=== PATIENT | female | born 2000 | race Native Hawaiian/Other Pacific Islander ===

== ENCOUNTER 2024-01-21 09:30 | Day surgery (SDC) | payer OTHER, SELFPAY ==
[2024-01-08 13:53] VITALS: BMI 32.5
[2024-01-21] VITALS (7 sets, daily range): BP systolic 98–109; BP diastolic 53–67; PULSE 52–513; RESP 12–18; TEMP 36.2–36.4; O2SAT 53–100; BMI 34.7
[2024-01-21] MEDS: FAMOTIDINE 20 MG/2 ML VIAL IV (10:06)
[2024-01-21] MEDS: LACTATED RINGERS 1,000 ML 42 ML IV (10:06)
--- NOTE | 2024-01-21 10:38 | PM.PREOP ---
Pre-operative Note Interval Note History & Physical reviewed/Exam performed by Physician: Yes Changes to H&P: No H&P completed within 30 days and has changed as indicated here:: see note from 12/25/23
[2024-01-21] MEDS: BUPIVACAINE 0.25% (PF) 30 ML, EPINEPHrine 0.15 MG INJ (11:15)
--- NOTE | 2024-01-21 11:21 | SUR.OPER ---
Supine on padded OR bed, head on pillow, RIGHT ARM SECURED W/3IN SILK TAPE OVER CHEST W/BLANKET PADDING,LEFT ARM SECURED ON GEL PADDED ARM REST WNL.,legs uncrossed, safety belt at thigh, CONFIRMED BY DR. HALLMAN.
--- NOTE | 2024-01-21 11:29 | PM.OP.1 ---
Operative Date/Time/Diagnoses Date of procedure: 01/21/24 Time of procedure: 11:00 Pre-op diagnosis: Retained Nexplanon contraceptive caesar Post-op diagnosis: same Procedure & Clinicians Procedure: Nexplanon contraceptive caesar removal Same procedure as scheduled: Yes Indications: 23yo F with Nexplanon in place, desiring removal. Had 2 attempts in the office for removal that were unsuccessful, thus she was counseled and consented for removal in the OR. Surgeon: Charity Maria Click Yes if Unassisted: Yes Anesthesia Type: Sedation Operative Notes Findings: Palpable Nexplanon caesar in the left medial upper arm. Specimen(s): none sent Estimated Blood Loss (mL): 1 Blood products transfused: none Procedure in detail: The risks, benefits, indications and alternatives of the procedure were reviewed with the patient and informed consent was obtained. The pt was taken to the operating room where IV sedation was obtained without difficulty. The pt was then placed in the supine position with the left arm exposed for surgery. Sequential compression devices were placed bilaterally for VTE prophylaxis. The pt was then prepped with Chlorhexidine and draped in the sterile fashion. The Nexplanon caesar was palpable in the left upper medial arm. The site was then anesthetized with 2cc of 0.25% marcaine with epinephrine.? A 2 cm skin incision was made with the scalpel over the middle of the Nexplanon. The caesar was then grasped and manipulated through the incision, where it was then freed of connective tissue and withdrawn intact.?? Two interrupted sutures of 4-0 monocryl were placed subcuticularly to reapproximate the skin. Dermabond was then placed over the incision. The patient tolerated the procedure well. At the completion of the case the sponge and needle counts were correct x 2. The patient was taken to the PACU in stable condition. Complications: none Post-operative Condition: stable Disposition: PACU Plan for aftercare: Discharge to home once patient is meeting all discharge criteria.
== END 2024-01-21 12:15 | disposition home or self-care (01) ==
PROVIDERS: PCP Family Medicine; Referring Provider Student in an Organized Health Care Education/Training Program; Visit Provider Student in an Organized Health Care Education/Training Program
PROC: (CPT 11982; principal; 2024-01-21 10:45)
DX: Z30.46 Encounter for surveillance of implantable subdermal contraceptive (principal)
CPT/HCPCS: 11982; 81025; J0171; J2250; J2704